=== PATIENT | female | born 1970 | race African-American/Black ===

== ENCOUNTER 2018-06-22 18:37 | Emergency (ER) | payer BC, MEDICAID ==
[~2018-06-22] VITALS: Ht 167.6 cm; Wt 65.8 kg
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
[2018-06-22 18:51] VITALS: BP 101/59
--- NOTE | 2018-06-22 19:08 | NUR ---
ED Nurse Note: report given to SAI french
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
--- NOTE | 2018-06-22 20:12 | NUR ---
ED Nurse Note: pt return from ct and xray
[2018-06-22] MEDS ORDERED: VOLTAREN100 G1 TP (20:21)
[2018-06-22] MEDS ORDERED: IBUPROFEN600 MG ORAL (20:21)
[2018-06-22 20:25] VITALS: BP 101/59
--- NOTE | 2018-06-22 20:26 | NUR ---
ER DISCHARGE NOTE: Patient is cleared to be discharged per ERMD, pt is aox4, on room air, with stable vital signs. pt was given dc and prescription instructions, pt was able to verbalize understanding, pt id band removed. pt is able to ambulate with steady gait. pt took all belongings.
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
== END 2018-06-22 20:25 | disposition home or self-care (01) ==
LOC: EMR 19:21
DX: S16.1XXA Strain of muscle, fascia and tendon at neck level, initial encounter (principal); S39.012A Strain of muscle, fascia and tendon of lower back, initial encounter; V43.52XA Car driver injured in collision with other type car in traffic accident, initial encounter; Y92.9 Unspecified place or not applicable
CPT/HCPCS: 72020; 72040; 99284